=== PATIENT | male | born 1995 | race Caucasian/White ===

== ENCOUNTER 2017-11-03 16:43 | Emergency (ER) | payer OTHER ==
[2017-11-03 16:58] VITALS: BP 134/94
[2017-11-03] MEDS ORDERED: IBUPROFEN 800 MG TABLET PO STA (17:38)
[2017-11-03] MEDS ORDERED: CYCLOBENZAPRINE 10 MG TABLET PO STA (17:38)
--- NOTE | 2017-11-03 17:40 | ED Physician Documentation ---
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 He has had intermittent back pain for quite some time that got worse last night while exercising. It is in the low back, nonradiating worse if he bends forward. There is no weakness, numbness, tingling, saddle anesthesia, or fevers.) Review of Systems Constitutional: reports: Reviewed and negative Throat: reports: Reviewed and negative Cardiac: reports: Reviewed and negative Respiratory: reports: Reviewed and negative PD PAST MEDICAL HISTORY - Past Medical History Past Medical History: No - Past Surgical History Past Surgical History: No - Present Medications Home Medications: Ambulatory Orders Medication Instructions Recorded Confirmed Cyclobenzaprine [Flexeril] 10 mg PO TID PRN #20 tablet 11/03/17 Ibuprofen [Motrin] 800 mg PO Q8H PRN #30 tablet 11/03/17 - Allergies Allergies/Adverse Reactions: Allergies Allergy/AdvReac Type Severity Reaction Status Date / Time No Known Drug Allergies Allergy Verified 11/03/17 16:49 - Social History Does the pt smoke?: No Smoking Status: Never smoker - Immunizations Immunizations are current?: Yes PD ED PE NORMAL - Vitals Vital signs reviewed: Yes - General General: Alert and oriented X 3, No acute distress - Back Back: No spinal TTP, Other (Some paralumbar muscle tenderness low down in winces with flexion of the back. The patient has equal and normal Achilles and patellar reflexes bilaterally. Normal sensation in all areas of the legs. Patient denies saddle anesthesia. Normal strength in flexion-extension at the ankles, knees, and flexion of the hips.) - Neuro Neuro: Alert and oriented X 3 Eye Opening: Spontaneous Motor: Obeys Commands Verbal: Oriented GCS Score: 15 Results - Vitals Vitals: Vital Signs - 24 hr 11/03/17 16:46 Temperature 36.7 C Heart Rate 64 Respiratory 18 Rate Blood Pressure 134/94 H O2 Saturation 100 Oxygen O2 Source Room air Departure - Departure Disposition: 01 Home, Self Care Clinical Impression: Back pain Qualifiers: Back pain location: low back pain Chronicity: acute Back pain laterality: midline Sciatica presence: without sciatica Qualified Code(s): M54.5 - Low back pain Condition: Good Record reviewed to determine appropriate education?: Yes Instructions: ED Low Back Pain Injury Prescriptions: Cyclobenzaprine [Flexeril] 10 mg PO TID PRN #20 tablet PRN Reason: Pain Ibuprofen [Motrin] 800 mg PO Q8H PRN #30 tablet PRN Reason: PAIN &/OR FEVER Comments: Call your doctor to arrange a follow-up appointment, make the next available appointment. In the interim, return anytime if worse or if new symptoms develop. Your blood pressure was elevated today on check into the emergency department. This does not mean that you have hypertension, it is a common phenomenon to come to the emergency department and have elevated blood pressure. I recommend that you see your primary care physician within the week to have it rechecked when you are feeling better. Forms: Activity restrictions
== END 2017-11-03 17:45 | disposition home or self-care (01) ==
LOC: ED 16:43
DX: M54.5 Low back pain (principal); R03.0 Elevated blood-pressure reading, without diagnosis of hypertension
CPT/HCPCS: 99283; A9270

== ENCOUNTER 2019-06-11 13:41 | Outpatient (CLI) | payer OTHER ==
[2019-06-11 14:08] VITALS: BP 139/72
--- NOTE | 2019-06-11 14:08 | SLEEP CARE CONSULTATION ---
Information from patient questionnaire entered by Tianna Pino. I have reviewed and concur with the information entered by Tianna Pino. This document represents the service I personally performed and the decisions made by me, Macrina Phelan MD, [facility]. History of Present Illness Reason for Visit: New patient Chief Complaint: reports: Unrefreshed sleep, Excessive daytime sleepiness Duration of Symptoms: 4 YEARS Usual bedtime: 2230 Time it takes to fall asleep: 20 minutes Snores at night: Yes Observed to quit breathing while asleep: Yes Sleeps alone due to snoring: No Number of times waking at night: 5-7 Reasons for waking at night: reports: Snoring, Gasping for air Toss, Turn, or Twitch while sleeping: Yes Recalls having dreams: Yes Usually gets out of bed at: 0500 Feels refreshed in the morning: No Morning headache: Yes Sleepy or fatigued during the day: Yes Ever fallen asleep while driving: Yes Takes day naps: Yes (sometimes) Dreams during day naps: No Additional HPI information: I had the pleasure of seeing Mr. Sebastian today regarding the possibility of him having a sleep disorder. As you know, he is a __ year old gentleman who complains of observed apneas,, unrefreshed sleep and 25 daytime sleepiness for the past 4 years. The patient tells me that he normally goes to bed around 10:30 pm, and it takes him approximately 20 minutes to fall asleep. He has been told that he snores loudly and irregularly at night. He has also been observed to stop breathing in his sleep. His bed partner can still sleep in the same bed. He can recall waking up on the average of 5 - 7 times during the night. Most of the time he wakes up because of his own snoring, choking, and having to gasp for air. There is a lot of tossing and turning in his sleep. No somniloquy (sleep talking) or somnambulism (sleep walking). Generally he can recall having dreams. In the morning he usually gets up out of the bed around 5 a.m. not feeling refreshed nor rested. He usually does have a morning headache. During the day he complains of feeling sleepy and fatigued. His score on [place] Sleepiness Scale is 18 out of 24. He has fallen asleep while driving and has gone out of the mello. He usually takes naps during the day. Upon falling asleep during the day he denies having vivid dreams. He reports having impaired concentration during the day. Subjective Initial [place] Sleepiness Scale score: 18 Past Medical History Past Medical History: reports: Hypertension Social History The patient's occupation is a active . Patient is Single and lives in [place]. Have you smoked in the past 12 months: No Alcohol use: Yes Alcohol amount and frequency: 2 drinks once/month Caffeine use: Yes Caffeine amount and frequency: on occasion Family History Family history of sleep disordered breathing: Yes Family Hx Sleep Apnea: Sibling: Snoring Allergies and Home Medications Drug allergies reviewed: Yes Home medication list reviewed: Yes Review of Systems Weight gain over past 5 years: 20 Cardiovascular: reports: high blood pressure Respiratory: reports: shortness of breath Gastrointestinal: denies: heartburn, difficulty swallowing, nausea, vomitting, diarrhea, abdominal pain, other Urinary: denies: incontinence, frequency, urgency, impotence, other Neurological: reports: headaches Psychiatric: denies: Attention Deficit Hyperactivity, anxiety, depression, mood disorder, claustrophobia, other Ear/Nose/Throat: denies: nasal congestion, sinus problems, nose bleeds, dry mouth/throat, hoarseness, injury to nose, tonsillectomy, wisdom teeth removed, other Endocrine: denies: thyroid disease, history of goiter, sluggishness, too hot or cold, excessive thirst, increased appetite, increased urination, unexplained weakness, other Musculoskeletal: denies: joint pain, neck pain, back pain, joint swelling, muscle pain or cramping, mobility problems, other Immunologic: denies: sneezing, rash, itching, allergies to food or environment, other Physical Exam Vital signs obtained and entered by: Dr. Phelan Blood Pressure: 139/72 Cuff size: regular Heart Rate: 74 O2 Saturation: 96 Height: 6 ft 1 in Weight: 200 lb Body Mass Index: 26.4 BMI Classification: Overweight Neck circumference: 16 Mood/affect: normal HEENT: No craniofacial malformation Nostrils: patent to airflow Turbinates: normal Septum: midline Mouth and throat: narrow oropharynx Soft palate: long Hard palate: normal Uvula: normal Uvula visualization: 50% Mallampati Class II Tongue: normal in size Tonsils: small Chin and jaw: normal size and position Neck: normal w/o lymphadenopathy or thyromegaly Heart: regular rate and rhythm Lungs: clear bilaterally Abdomen: soft, non-tender Extremities: no edema or clubbing Neurologic: intact, no focal deficits Impression and Plan IMPRESSION: 1. Obstructive Sleep Apnea-Hypopnea Syndrome, as suggested by history of loud and irregular snoring, observed cessation of breath while asleep, frequent awakenings during the night, unrefreshed sleep, cognitive impairment, and daytime hypersomnolence. Narrow oropharynx and obesity are common predisposing factors for obstructive sleep apnea-hypopnea syndrome. Pathophysiology of sleep-disordered breathing was discussed. I recommend proceeding to polysomnography to confirm the diagnosis and to assess severity. If he has significant sleep disordered breathing, a manual CPAP titration study will also be performed to find the optimal treatment pressure. I informed the patient of what the sleep studies involve and after some discussion, he agreed to proceed. Plan: 1. Schedule polysomnography + manual CPAP titration study and return in 1 to 2 weeks after the study to discuss result and initiate therapy. 2. Avoid long distance driving or when feeling sleepy. 3. Avoid alcohol, sedative and muscle relaxant around bedtime. I spent 100% of the 15 minute visit [id number] with the patient with greater than 50% of this was spent time counseling the patient and coordination of care.
== END 2019-06-11 13:42 | disposition home or self-care (01) ==
LOC: SC 13:41
PROVIDERS: ATTEND Internal Medicine Pulmonary Disease
DX: R06.83 Snoring (principal); R06.81 Apnea, not elsewhere classified; G47.8 Other sleep disorders; R41.89 Other symptoms and signs involving cognitive functions and awareness; G47.10 Hypersomnia, unspecified
CPT/HCPCS: 99203; 99212

== ENCOUNTER 2019-07-30 20:38 | Outpatient (CLI) | payer OTHER | END 2019-07-30 20:39 | disposition home or self-care (01) | LOC: SC 20:38 | PROVIDERS: ATTEND Internal Medicine Pulmonary Disease | DX: R06.83 Snoring (principal); G47.10 Hypersomnia, unspecified; G47.8 Other sleep disorders | CPT/HCPCS: 95810 ==

== ENCOUNTER 2019-09-04 10:47 | Outpatient (CLI) | payer OTHER ==
--- NOTE | 2019-09-04 11:19 | SLEEP CARE CONSULTATION ---
Information from patient questionnaire entered by Tianna Pino. I have reviewed and concur with the information entered by Tianna Pino. This document represents the service I personally performed and the decisions made by me, Macrina Phelan MD, [facility]. History of Present Illness Initial [place] Sleepiness Scale score: 18 Current [place] Sleepiness Scale score: 11 Additional HPI information: HPI: Mr. Sebastian returned for follow up of the sleep study he had on 07/30/19. The polysomnography showed that the patient had normal sleep efficiency. The sleep architecture was normal as well. Respiratory monitoring showed no significant sleep disordered breathing (AHI = 0.4) or hypoxia (jessica oxygen saturation of 93%). The patient slept adequately in supine position (supine AHI = 0.5; non-supine = 0.35). Snore was moderate in intensity. There was no significant periodic leg movement of sleep. Cardiac rhythm was normal sinus rhythm without significant arrhythmia. No abnormal behavior (parasomnia) observed during the night. The patient was informed of these findings. I explained to him that the sleep study was normal. Allergies and Home Medications Drug allergies reviewed: Yes Home medication list reviewed: Yes Review of Systems Review of systems same as previous: Yes Physical Exam Weight: 200 lb Impression and Plan IMPRESSION: 1. Insufficient sleep syndrome, causing excessive daytime sleepiness. There was no sleep disrupting condition found during the sleep study. The sleep efficiency and architecture were both normal. In reviewing his sleep diary prior to the sleep study, I do see that he generally gets 5 6 hours of sleep a night. PLAN: 1. Allow at least 8 hours for sleep at night. If he has to get up at 5 am, he should be in bed by 9 pm. 2. Return for follow up on as needed basis. I spent 100% of this visit face to face with the patient with greater than 50% of this was spent time counseling the patient and coordination of care.
== END 2019-09-04 10:48 | disposition home or self-care (01) ==
LOC: SC 10:47
PROVIDERS: ATTEND Internal Medicine Pulmonary Disease
DX: F51.12 Insufficient sleep syndrome (principal)
CPT/HCPCS: 99212; 99213

== ENCOUNTER 2019-10-19 14:54 | Emergency (ER) | payer OTHER ==
[2019-10-19 15:04] VITALS: BP 125/93
[2019-10-19] MEDS ORDERED: BUFFERED LIDOCAINE 10 ML SYRINGE SUBQ STA (15:09)
--- NOTE | 2019-10-19 15:13 | ED Physician Documentation ---
PD HPI HEAD INJURY - Stated complaint Stated Complaint: HEAD LAC - Chief complaint Chief Complaint: Laceration - History obtained from History obtained from: Patient (He was working at home, a wrench slipped and he hit himself in the left eyebrow and has a laceration there. This happened just prior to arrival. He does not know when his last tetanus shot was, but he is active duty in the [place].) Review of Systems Constitutional: reports: Reviewed and negative Cardiac: reports: Reviewed and negative Respiratory: reports: Reviewed and negative PD PAST MEDICAL HISTORY - Past Surgical History Past Surgical History: No - Present Medications Home Medications: Ambulatory Orders Medication Instructions Recorded Confirmed Cyclobenzaprine [Flexeril] 10 mg PO TID PRN #20 tablet 11/03/17 Ibuprofen [Motrin] 800 mg PO Q8H PRN #30 tablet 11/03/17 - Allergies Allergies/Adverse Reactions: Allergies Allergy/AdvReac Type Severity Reaction Status Date / Time No Known Drug Allergies Allergy Verified 10/19/19 15:04 - Social History Does the pt smoke?: No Smoking Status: Never smoker - Immunizations Immunizations are current?: Yes PD ED PE NORMAL - Vitals Vital signs reviewed: Yes - General General: Alert and oriented X 3, No acute distress - HEENT HEENT: Other (There is a slightly greater than 1 cm laceration with the medial left eyebrow, no facial bony tenderness, extraocular movements are normal. Eyebrow lift is normal.) - Neck Neck: Supple, no meningeal sign, No bony TTP - Neuro Neuro: Alert and oriented X 3, moose hunter 2-12 intact, No motor deficit, No sensory deficit, Normal speech Eye Opening: Spontaneous Motor: Obeys Commands Verbal: Oriented GCS Score: 15 Results - Vitals Vitals: Vital Signs - 24 hr 10/19/19 15:02 Temperature 36.5 C Heart Rate 70 Respiratory 20 Rate Blood Pressure 125/93 H O2 Saturation 99 Oxygen O2 Source Room air Procedures - Laceration (location) L eyebrow Length in cm: 1.2 Wound type: Linear, Into subcut fat Neurovascular status: Sensory intact, Motor intact, Vascular intact Anesthesia: Lidocaine 1%, With bicarb Wound Preparation: Irrigated copiously NS Skin layer closure: Prolene, Interrupted, Size #-0 - enter number (6-0), Sutures - enter # (4) Other: Patient tolerated well, No complications, Neurovascular intact, Tetanus UTD Complexity: Simple Departure - Departure Disposition: 01 Home, Self Care Clinical Impression: Laceration Condition: Good Record reviewed to determine appropriate education?: Yes Instructions: ED Laceration Facial Sutr Tape Comments: You have 4 sutures in your left eyebrow of 6-0 Prolene. You should have them out in about 6 days. [place] Return for new or worsening symptoms especially severe headache, nausea, or visual issues.
== END 2019-10-19 15:30 | disposition home or self-care (01) ==
LOC: ED 14:54
DX: S01.112A Laceration without foreign body of left eyelid and periocular area, initial encounter (principal); W22.8XXA Striking against or struck by other objects, initial encounter; Y93.89 Activity, other specified; Y92.009 Unspecified place in unspecified non-institutional (private) residence as the place of occurrence of the external cause; Y99.8 Other external cause status
CPT/HCPCS: 12011; 99283

== ENCOUNTER 2019-10-26 16:32 | Emergency (ER) | payer OTHER ==
--- NOTE | 2019-10-26 18:27 | ED Physician Documentation ---
PD HPI WOUND RECHECK - Stated complaint Stated Complaint: SUTURE REMOVAL - Chief complaint Chief Complaint: Laceration - Histroy obtained from History obtained from: Patient - History of Present Illness Location: Face (Left eyebrow) Timing - onset: How many days ago (7) Similar symptoms before: Has not had sx before Recently seen: Emergency Dept (7 days ago) Review of Systems Constitutional: denies: Fever, Chills Eyes: denies: Decreased vision Neurologic: denies: Altered mental status PD PAST MEDICAL HISTORY - Past Medical History Past Medical History: No - Past Surgical History Past Surgical History: No - Present Medications Home Medications: Ambulatory Orders Medication Instructions Recorded Confirmed Cyclobenzaprine [Flexeril] 10 mg PO TID PRN #20 tablet 11/03/17 Ibuprofen [Motrin] 800 mg PO Q8H PRN #30 tablet 11/03/17 - Allergies Allergies/Adverse Reactions: Allergies Allergy/AdvReac Type Severity Reaction Status Date / Time No Known Drug Allergies Allergy Verified 10/26/19 16:37 - Social History Does the pt smoke?: No Smoking Status: Never smoker - Immunizations Immunizations are current?: Yes PD ED PE NORMAL - Vitals Vital signs reviewed: Yes - General General: Alert and oriented X 3, No acute distress, Well developed/nourished - HEENT HEENT: Other (Left eyebrow with a well-healing laceration without any signs of infection. [address] These were removed easily with forceps and scalpel tip.) Results - Vitals Vitals: Vital Signs - 24 hr 10/26/19 16:37 Temperature 36.5 C Heart Rate 67 Respiratory 14 Rate Blood Pressure 132/68 H O2 Saturation 100 Oxygen O2 Source Room air PD MEDICAL DECISION MAKING - ED course Complexity details: considered differential (The wound is well-healing without any signs of infection. Sutures removed without complications.), d/w patient Departure - Departure Disposition: 01 Home, Self Care Clinical Impression: Encounter for removal of sutures Condition: Stable Record reviewed to determine appropriate education?: Yes Instructions: ED Wound Check Sutr Remove No Infec Comments: The patient was discharged with verbal instructions to return if signs of infection otherwise continue wound care until completely healed.
[2019-10-26 18:44] VITALS: BP 130/66
== END 2019-10-26 18:43 | disposition home or self-care (01) ==
LOC: ED 16:32
DX: S01.112D Laceration without foreign body of left eyelid and periocular area, subsequent encounter (principal); Z48.02 Encounter for removal of sutures
CPT/HCPCS: 99281